=== PATIENT | female | born 1965 | race Caucasian/White ===

== ENCOUNTER 2017-03-20 23:08 | Emergency (ER) | payer OTHER ==
[~2017-03-20] VITALS: Ht 162.6 cm; Wt 68.0 kg
[~2017-03-20 23:08] MED LIST: AUGMENTIN; BENADRYL25 MG; CLARITIN-D 121 EACH; CLARITIN10 M2; COMPAZINE10 MG PO; FLONASE NS; HYDROCODON-ACE1 EAC7 PO; LEXAPRO; NORCO 5-325 TA1 EACH PO; PERCOCET 5-3251 EACH; PREVACID 30MG C30 M1 PO; SUDAFED 12 HR120 MG PO; XANAX 0.25 MG0.25 MG PO; ZANAFLEX4 M1 PO
[2017-03-20] MEDS ORDERED: ANTIHYPERTENSIVE (23:59)
[2017-03-21 01:07] VITALS: BP 161/95
== END 2017-03-21 00:55 | disposition home or self-care (01) ==
LOC: ER 23:08
DX: S83.92XA Sprain of unspecified site of left knee, initial encounter (principal); S00.81XA Abrasion of other part of head, initial encounter; F41.9 Anxiety disorder, unspecified; F10.99 Alcohol use, unspecified with unspecified alcohol-induced disorder; Z98.890 Other specified postprocedural states; Z88.1 Allergy status to other antibiotic agents; Z91.048 Other nonmedicinal substance allergy status; Z88.8 Allergy status to other drugs, medicaments and biological substances; Z87.891 Personal history of nicotine dependence; Z90.49 Acquired absence of other specified parts of digestive tract; W01.198A Fall on same level from slipping, tripping and stumbling with subsequent striking against other object, initial encounter; Y93.01 Activity, walking, marching and hiking; Y92.89 Other specified places as the place of occurrence of the external cause; Y99.8 Other external cause status